=== PATIENT | male | born 1980 | race Caucasian/White ===

== ENCOUNTER 2016-08-22 11:51 | Inpatient (IN) | payer MEDICARE, MEDICAID ==
[~2016-08-22] VITALS: Ht 167.6 cm; Wt 64.2 kg
[~2016-08-22 11:51] MED LIST: LITH600C PO; NICO21T TD; PHENY100 PO; QUET400T PO
[2016-08-22 12:15] LABS: BASOPHILS % (AUTO) 0.2 % (0.0-2.0); EOSINOPHILS % (AUTO) 0.1 % (1.0-6.0); HEMATOCRIT 44.5 % (41-53); HEMOGLOBIN 14.8 g/dL (13.5-17.5); LYMPHOCYTES # (AUTO) 1.8 K/uL (1.0-4.8); LYMPHOCYTES % (AUTO) 19.8 % (22.0-44.0); MEAN CORPUSCULAR HGB CONC 33.1 G/dL (31.0-37.0); MEAN CORPUSCULAR VOLUME 91 fL (80-100); MONOCYTES # (AUTO) 0.5 K/uL (0.1-1.0); MONOCYTES % (AUTO) 5.5 % (2.0-9.0); NEUTROPHILS # (AUTO) 6.8 K/uL (1.8-7.7); NEUTROPHILS % (AUTO) 74.4 % (40.0-70.0); PLATELET COUNT (AUTO) 322 K/uL (150-450); RED BLOOD CELL COUNT(AUTO) 4.92 MIL/uL (4.50-5.90); RED CELL DISTRIBUTION WIDTH 14.4 % (11.5-14.5); WHITE BLOOD COUNT (AUTO) 9.1 K/uL (4.5-11.0)
[2016-08-22 12:29] LABS: ANION GAP 10 mmol/L (8-16); CARBON DIOXIDE 28 mmol/L (22-29); CHLORIDE 102 mmol/L (98-107); GLOMERULAR FILTR. RATE CALC > 60 mL/min (>60); SODIUM SERUM 140 mmol/L (136-145); UREA NITROGEN, BLOOD 9 mg/dL (7-18)
[2016-08-22 12:35] LABS: ALANINE AMINOTRANSFERASE 31 U/L (12-78); ALBUMIN 3.8 g/dL (3.4-5.0); ASPARTATE AMINOTRANSFERASE 12 U/L (15-37); BILIRUBIN,TOTAL 0.4 mg/dL (0.1-1.0); TOTAL PROTEIN, SERUM 7.4 g/dL (6.4-8.2)
[2016-08-22] MEDS ORDERED: CARB200T6 PO (13:01)
[2016-08-22] MEDS ORDERED: TRAZ-147 PO (13:01)
[2016-08-22] MEDS ORDERED: QUET300T2 PO (13:01)
[2016-08-22] MEDS ORDERED: HALOPERIDOL LACTATE 5 MG/ML VIAL IM ONE (14:15)
[2016-08-22] MEDS ORDERED: LORazepam 2 MG/ML VIAL IM ONE (14:15)
[2016-08-22 14:34] LABS: LITHIUM < 0.20 mmol/L (0.60-1.20)
[2016-08-22 22:15] VITALS: BP 106/74
[2016-08-22] MEDS ORDERED: INFLUENZA VIRUS VACCINE QVS 2016-17 (3YR+)/PF 60 MCG/0.5 ML SYRINGE IM ONE (22:15)
[2016-08-23 06:44] VITALS: BP 112/73
[2016-08-23 08:33] VITALS: BP 130/81
[2016-08-23] MEDS: NICOTINE 7 MG/24 HOUR PATCH TD SCH (09:00)
[2016-08-23] MEDS: CarBAMazepine 200 MG TABLET PO SCH ×3 (09:48→17:38)
[2016-08-23] MEDS: LORazepam 2 MG TABLET PO PRN (14:36)
[2016-08-23 16:00] VITALS: BP 126/82
[2016-08-23] MEDS: QUEtiapine FUMARATE 300 MG TABLET PO SCH (17:39)
[2016-08-23] MEDS: TraZODone HCL 100 MG TABLET PO SCH (21:19)
[2016-08-24 01:34] VITALS: BP 131/72
[2016-08-24] MEDS: HALOPERIDOL 5 MG TABLET PO PRN (01:49)
[2016-08-24] MEDS: ZOLPIDEM TARTRATE 10 MG TABLET PO PRN (01:49)
[2016-08-24] MEDS: LORazepam 2 MG TABLET PO PRN ×2 (01:49→16:15)
[2016-08-24 08:09] VITALS: BP_SYST 127
[2016-08-24] MEDS: NICOTINE 7 MG/24 HOUR PATCH TD SCH (09:00)
[2016-08-24] MEDS: QUEtiapine FUMARATE 300 MG TABLET PO SCH ×2 (09:43→16:15)
[2016-08-24] MEDS: CarBAMazepine 200 MG TABLET PO SCH ×3 (09:43→16:15)
[2016-08-24 16:09] VITALS: BP 123/81
[2016-08-24] MEDS: TraZODone HCL 100 MG TABLET PO SCH (20:32)
[2016-08-25] MEDS: HALOPERIDOL 5 MG TABLET PO PRN (03:03)
[2016-08-25] MEDS: LORazepam 2 MG TABLET PO PRN (03:03)
[2016-08-25 03:12] VITALS: BP 132/78
[2016-08-25 08:09] VITALS: BP 139/76
[2016-08-25] MEDS: NICOTINE 7 MG/24 HOUR PATCH TD SCH (09:00)
[2016-08-25] MEDS: CarBAMazepine 200 MG TABLET PO SCH ×3 (09:21→17:00)
[2016-08-25] MEDS: QUEtiapine FUMARATE 300 MG TABLET PO SCH ×2 (09:21→17:00)
[2016-08-25] MEDS: BENZTROPINE MESYLATE 1 MG TABLET PO SCH ×2 (09:21→17:00)
[2016-08-25 10:08] VITALS: BP 152/85
[2016-08-25 10:13] VITALS: BP 128/83
[2016-08-25 18:05] VITALS: BP 126/83
[2016-08-25] MEDS: TraZODone HCL 100 MG TABLET PO SCH (20:34)
[2016-08-25 23:03] VITALS: BP 125/81
[2016-08-26 02:51] VITALS: BP 115/85
[2016-08-26 06:42] VITALS: BP 122/82
[2016-08-26 08:45] VITALS: BP 132/57
[2016-08-26] MEDS: BENZTROPINE MESYLATE 1 MG TABLET PO SCH ×2 (08:46→17:19)
[2016-08-26] MEDS: AMOX TR/POT CLAV 875 MG/125 MG TABLET PO SCH ×2 (08:46→17:19)
[2016-08-26] MEDS: QUEtiapine FUMARATE 300 MG TABLET PO SCH ×2 (08:46→17:19)
[2016-08-26] MEDS: NICOTINE 7 MG/24 HOUR PATCH TD SCH (08:47)
[2016-08-26] MEDS: CarBAMazepine 200 MG TABLET PO SCH ×3 (08:47→17:19)
[2016-08-26] MEDS: IBUPROFEN 400 MG TABLET PO PRN (10:44)
[2016-08-26 13:31] VITALS: BP 118/72
[2016-08-26] MEDS: TraZODone HCL 100 MG TABLET PO SCH (20:16)
[2016-08-27] MEDS: QUEtiapine FUMARATE 300 MG TABLET PO SCH ×2 (08:02→17:08)
[2016-08-27] MEDS: BENZTROPINE MESYLATE 1 MG TABLET PO SCH ×2 (08:02→17:08)
[2016-08-27] MEDS: CarBAMazepine 200 MG TABLET PO SCH ×3 (08:02→17:08)
[2016-08-27] MEDS: AMOX TR/POT CLAV 875 MG/125 MG TABLET PO SCH ×2 (08:02→17:08)
[2016-08-27 08:17] VITALS: BP 130/83
[2016-08-27] MEDS: NICOTINE 7 MG/24 HOUR PATCH TD SCH (09:00)
[2016-08-27] MEDS: IBUPROFEN 400 MG TABLET PO PRN (09:33)
[2016-08-27] MEDS: HALOPERIDOL 5 MG TABLET PO PRN (17:08)
[2016-08-27] MEDS: LORazepam 2 MG TABLET PO PRN (17:09)
[2016-08-27] MEDS: TraZODone HCL 100 MG TABLET PO SCH (21:51)
[2016-08-27 22:50] VITALS: BP 116/86
[2016-08-28] MEDS: ZOLPIDEM TARTRATE 10 MG TABLET PO PRN (01:24)
[2016-08-28] MEDS: AMOX TR/POT CLAV 875 MG/125 MG TABLET PO SCH ×2 (08:04→16:16)
[2016-08-28] MEDS: BENZTROPINE MESYLATE 1 MG TABLET PO SCH ×2 (08:04→16:16)
[2016-08-28] MEDS: QUEtiapine FUMARATE 300 MG TABLET PO SCH ×2 (08:04→16:16)
[2016-08-28] MEDS: CarBAMazepine 200 MG TABLET PO SCH ×3 (08:04→16:16)
[2016-08-28] MEDS: LORazepam 2 MG TABLET PO PRN (08:04)
[2016-08-28 08:20] VITALS: BP 126/79
[2016-08-28] MEDS: NICOTINE 7 MG/24 HOUR PATCH TD SCH (09:00)
[2016-08-28 16:44] VITALS: BP 125/80
[2016-08-28] MEDS: TraZODone HCL 100 MG TABLET PO SCH (20:10)
[2016-08-29] MEDS: CarBAMazepine 200 MG TABLET PO SCH ×3 (08:05→16:26)
[2016-08-29] MEDS: LORazepam 2 MG TABLET PO PRN (08:05)
[2016-08-29] MEDS: BENZTROPINE MESYLATE 1 MG TABLET PO SCH ×2 (08:05→16:26)
[2016-08-29] MEDS: NICOTINE 7 MG/24 HOUR PATCH TD SCH (08:05)
[2016-08-29] MEDS: AMOX TR/POT CLAV 875 MG/125 MG TABLET PO SCH ×2 (08:05→16:26)
[2016-08-29] MEDS: QUEtiapine FUMARATE 300 MG TABLET PO SCH ×2 (08:05→16:26)
[2016-08-29] MEDS: HALOPERIDOL 5 MG TABLET PO PRN (08:06)
[2016-08-29 09:51] VITALS: BP 122/86
[2016-08-29 16:19] VITALS: BP 133/79
[2016-08-29] MEDS: TraZODone HCL 100 MG TABLET PO SCH (20:58)
[2016-08-30] MEDS: NICOTINE 7 MG/24 HOUR PATCH TD SCH (08:08)
[2016-08-30] MEDS: AMOX TR/POT CLAV 875 MG/125 MG TABLET PO SCH ×2 (08:08→17:09)
[2016-08-30] MEDS: IBUPROFEN 400 MG TABLET PO PRN (08:09)
[2016-08-30] MEDS: HALOPERIDOL 5 MG TABLET PO PRN (08:12)
[2016-08-30] MEDS: BENZTROPINE MESYLATE 1 MG TABLET PO SCH ×2 (08:12→17:09)
[2016-08-30] MEDS: CarBAMazepine 200 MG TABLET PO SCH ×3 (08:12→17:09)
[2016-08-30] MEDS: QUEtiapine FUMARATE 300 MG TABLET PO SCH ×2 (08:12→17:09)
[2016-08-30] MEDS: LORazepam 2 MG TABLET PO PRN (08:12)
[2016-08-30 08:15] VITALS: BP 125/61
[2016-08-30 16:43] VITALS: BP 123/82
[2016-08-30] MEDS: TraZODone HCL 100 MG TABLET PO SCH (21:13)
[2016-08-30] MEDS: ZOLPIDEM TARTRATE 10 MG TABLET PO PRN (22:33)
[2016-08-31] MEDS: CarBAMazepine 200 MG TABLET PO SCH ×3 (08:13→16:14)
[2016-08-31] MEDS: BENZTROPINE MESYLATE 1 MG TABLET PO SCH ×2 (08:13→16:16)
[2016-08-31] MEDS: QUEtiapine FUMARATE 300 MG TABLET PO SCH ×2 (08:13→16:14)
[2016-08-31] MEDS: NICOTINE 7 MG/24 HOUR PATCH TD SCH (09:00)
[2016-08-31 09:01] VITALS: BP 135/80
[2016-08-31 17:17] VITALS: BP 117/72
[2016-08-31] MEDS: TraZODone HCL 100 MG TABLET PO SCH (20:55)
[2016-09-01 08:00] VITALS: BP 130/62
[2016-09-01 08:30] VITALS: BP 130/62
[2016-09-01] MEDS: QUEtiapine FUMARATE 300 MG TABLET PO SCH ×2 (10:21→17:51)
[2016-09-01] MEDS: CarBAMazepine 200 MG TABLET PO SCH ×3 (10:21→17:51)
[2016-09-01] MEDS: NICOTINE 7 MG/24 HOUR PATCH TD SCH (10:21)
[2016-09-01] MEDS: BENZTROPINE MESYLATE 1 MG TABLET PO SCH ×2 (10:21→17:51)
[2016-09-01] MEDS: HALOPERIDOL 5 MG TABLET PO PRN (12:23)
[2016-09-01] MEDS: LORazepam 2 MG TABLET PO PRN (12:23)
[2016-09-01 16:00] VITALS: BP 114/80
[2016-09-01] MEDS: TraZODone HCL 100 MG TABLET PO SCH (21:50)
[2016-09-02 08:30] VITALS: BP 120/86
[2016-09-02] MEDS: CarBAMazepine 200 MG TABLET PO SCH ×3 (08:43→17:58)
[2016-09-02] MEDS: QUEtiapine FUMARATE 300 MG TABLET PO SCH ×2 (08:43→17:58)
[2016-09-02] MEDS: BENZTROPINE MESYLATE 1 MG TABLET PO SCH ×2 (08:44→17:58)
[2016-09-02] MEDS: NICOTINE 7 MG/24 HOUR PATCH TD SCH (08:46)
[2016-09-02] MEDS: HALOPERIDOL 5 MG TABLET PO PRN ×2 (09:46→19:55)
[2016-09-02] MEDS: LORazepam 2 MG TABLET PO PRN ×2 (09:46→19:55)
[2016-09-02 16:00] VITALS: BP 116/80
[2016-09-02] MEDS: TraZODone HCL 100 MG TABLET PO SCH (20:48)
[2016-09-03] MEDS: NICOTINE 7 MG/24 HOUR PATCH TD SCH (09:00)
[2016-09-03] MEDS: BENZTROPINE MESYLATE 1 MG TABLET PO SCH (09:09)
[2016-09-03] MEDS: QUEtiapine FUMARATE 300 MG TABLET PO SCH (09:09)
[2016-09-03] MEDS: CarBAMazepine 200 MG TABLET PO SCH (09:09)
[2016-09-03] MEDS ORDERED: BENZ1TAB10 PO (09:32)
[2016-09-03 09:42] VITALS: BP 125/78
[2016-09-03] MEDS ORDERED: NICO7T TD (10:08)
== END 2016-09-03 10:00 | disposition home or self-care (01) | DRG 885 ==
LOC: EMS 11:53 → B3A 20:39 → 3EC 08-25 16:30
DX: F25.0 Schizoaffective disorder, bipolar type (principal); F19.20 Other psychoactive substance dependence, uncomplicated; G40.909 Epilepsy, unspecified, not intractable, without status epilepticus; H40.9 Unspecified glaucoma; F99 Mental disorder, not otherwise specified; Z79.899 Other long term (current) drug therapy; Z78.1 Physical restraint status; Z59.0 Homelessness; Z91.5 Personal history of self-harm; Z72.89 Other problems related to lifestyle; Z88.5 Allergy status to narcotic agent; Z98.890 Other specified postprocedural states; Z28.21 Immunization not carried out because of patient refusal
CPT/HCPCS: 70450; 87081; 96372; 99285; A0429; G0480; J1630; J2060

== ENCOUNTER 2016-08-25 10:46 | Emergency (ER) | payer MEDICARE, OTHER ==
[~2016-08-25] VITALS: Ht 160 cm; Wt 72.7 kg
[~2016-08-25 10:46] MED LIST changes: +CARB200T6 PO; -LITH600C PO; -NICO21T TD; -PHENY100 PO; +QUET300T2 PO; -QUET400T PO; +TRAZ-147 PO
[2016-08-25 15:15] VITALS: BP 134/80
[2016-08-25] MEDS: PERTUSS(ACELL),DIPH,TET VAC/PF 0.5 ML VIAL IM ONE (15:20)
[2016-08-25] MEDS: AMOX TR/POT CLAV 875 MG/125 MG TABLET PO ONE (15:20)
[2016-08-25] MEDS: IBUPROFEN 600 MG TABLET PO ONE (15:21)
== END 2016-08-25 17:45 | disposition home or self-care (01) ==
LOC: EMS 10:48 → 3EC 17:35 → UNDOADMIN 17:35 → EMS 17:45
DX: S01.511A Laceration without foreign body of lip, initial encounter (principal); F17.210 Nicotine dependence, cigarettes, uncomplicated; Z88.8 Allergy status to other drugs, medicaments and biological substances; Y08.89XA Assault by other specified means, initial encounter; Y93.89 Activity, other specified; Y92.89 Other specified places as the place of occurrence of the external cause; Y99.8 Other external cause status
CPT/HCPCS: 12011; 70450; 70486; 90471; 90715; 99284; 99285

== ENCOUNTER 2017-07-05 10:31 | Inpatient (IN) | payer MEDICARE, MEDICAID ==
[~2017-07-05] VITALS: Ht 170.2 cm; Wt 61.9 kg
[~2017-07-05 10:31] MED LIST changes: +BENZ1TAB10 PO; +NICO7T TD
[2017-07-05 11:12] VITALS: BP 118/81
[2017-07-05] MEDS ORDERED: HALOPERIDOL 5 MG TABLET PO PRN (11:30)
[2017-07-05] MEDS ORDERED: LORazepam 2 MG TABLET PO PRN (11:30)
[2017-07-05] MEDS ORDERED: ZOLPIDEM TARTRATE 10 MG TABLET PO PRN (11:30)
[2017-07-05 13:43] VITALS: BP 116/72
[2017-07-05] MEDS ORDERED: INFLUENZA VIRUS VACCINE QVS 2017-18 (3YR+)/PF 60 MCG/0.5 ML SYRINGE IM ONE (14:15)
[2017-07-05 15:39] LABS: AMPHET/METH SCREEN,URINE POSITIVE (NEGATIVE); BARBITURATE SCREEN, URINE NEGATIVE (NEGATIVE); BENZODIAZEPINES SCREEN,URINE NEGATIVE (NEGATIVE); CANNABINOID SCREEN,URINE POSITIVE (NEGATIVE); COCAINE SCREEN,URINE NEGATIVE (NEGATIVE); METHADONE SCREEN, URINE NEGATIVE (NEGATIVE); OPIATE SCREEN,URINE NEGATIVE (NEGATIVE)
[2017-07-05 15:41] LABS: PHENCYCLIDINE SCREEN,URINE NEGATIVE (NEGATIVE)
[2017-07-05 15:58] LABS: APPEARANCE,URINE CLEAR (CLEAR); BILIRUBIN,URINE NEGATIVE (NEGATIVE); GLUCOSE, URINE (UA) 100 mg/dL (NEGATIVE); KETONES,URINE NEGATIVE (NEGATIVE); LEUKOCYTE ESTERASE ,URINE NEGATIVE (NEGATIVE); NITRATE,URINE NEGATIVE (NEGATIVE); OCCULT BLOOD,URINE NEGATIVE (NEGATIVE); PROTEIN,URINE NEGATIVE (NEGATIVE)
[2017-07-05] MEDS ORDERED: IBUPROFEN 400 MG TABLET PO PRN (16:15)
[2017-07-05] MEDS ORDERED: ACETAMINOPHEN 325 MG TABLET PO PRN (16:15)
[2017-07-05 16:18] LABS: BACTERIA,URINE None Seen /HPF (None Seen); RBC,URINE None Seen /HPF (0-2); SQUAMOUS EPITHELIAL CELL,UR Few /LPF (None Seen); WBC,URINE 0-2 /HPF (0-5)
[2017-07-05] MEDS: QUEtiapine FUMARATE 300 MG TABLET PO SCH (16:37)
[2017-07-05] MEDS: CarBAMazepine 200 MG TABLET PO SCH (16:37)
[2017-07-05] MEDS: BENZTROPINE MESYLATE 1 MG TABLET PO SCH (16:37)
[2017-07-05 17:00] VITALS: BP 105/66
[2017-07-05] MEDS: TraZODone HCL 100 MG TABLET PO SCH (20:45)
[2017-07-06 07:14] LABS: BASOPHILS # (AUTO) 0.02 K/uL (0.00-0.20); BASOPHILS % (AUTO) 0.2 % (0.0-2.0); EOSINOPHILS # (AUTO) 0.01 K/uL (0.00-0.70); EOSINOPHILS % (AUTO) 0.14 % (1.0-6.0); HEMATOCRIT 45.2 % (41-53); HEMOGLOBIN 15.6 g/dL (13.5-17.5); LYMPHOCYTES % (AUTO) 23.2 % (22.0-44.0); MEAN CORPUSCULAR HGB CONC 34.5 G/dL (31.0-37.0); MEAN CORPUSCULAR VOLUME 90 fL (80-100); MONOCYTES # (AUTO) 0.6 K/uL (0.1-1.0); MONOCYTES % (AUTO) 6.9 % (2.0-9.0); NEUTROPHILS # (AUTO) 6.1 K/uL (1.8-7.7); NEUTROPHILS % (AUTO) 69.6 % (40.0-70.0); PLATELET COUNT (AUTO) 266 K/uL (150-450); RED BLOOD CELL COUNT(AUTO) 5.04 MIL/uL (4.50-5.90)
[2017-07-06 07:37] LABS: HEMOGLOBIN A1C 5.7 % (4.5-6.2)
[2017-07-06 07:43] LABS: ALANINE AMINOTRANSFERASE 28 U/L (12-78); ALBUMIN 3.3 g/dL (3.4-5.0); ALKALINE PHOSPHATASE 117 U/L (46-116); ANION GAP 7 mmol/L (8-16); ASPARTATE AMINOTRANSFERASE 13 U/L (15-37); BILIRUBIN,TOTAL 0.4 mg/dL (0.1-1.0); CALCIUM, TOTAL 8.4 mg/dL (8.8-10.5); CARBAMAZEPINE (TEGRETOL) 4.4 mcg/mL (4.0-12.0); CARBON DIOXIDE 28 mmol/L (22-29); CHLORIDE 101 mmol/L (98-107); CHOL/HDL RATIO 3.8 (4.2-7.3); CHOLESTEROL 148 mg/dL (131-200); CREATININE 1.03 mg/dL (0.60-1.30); FREE T4 (FREE THYROXINE) 0.75 ng/dL (0.76-1.46); GLOMERULAR FILTR. RATE CALC > 60 mL/min (>60); GLUCOSE,RANDOM 97 mg/dL (70-110); HDL CHOLESTEROL 39 mg/dL (40-60); LDL CHOL (CALC.) 93 mg/dL (0-130); POTASSIUM 3.6 mmol/L (3.5-5.1); SODIUM SERUM 136 mmol/L (136-145); THYROID STIMULATING HORMONE 0.32 uIU/mL (0.36-3.74); TOTAL PROTEIN, SERUM 6.4 g/dL (6.4-8.2); TRIGLYCERIDES 81 mg/dL (15-150); UREA NITROGEN, BLOOD 13 mg/dL (7-18)
[2017-07-06 08:15] VITALS: BP 120/83
[2017-07-06] MEDS: QUEtiapine FUMARATE 300 MG TABLET PO SCH ×2 (09:19→16:23)
[2017-07-06] MEDS: BENZTROPINE MESYLATE 1 MG TABLET PO SCH ×2 (09:19→16:23)
[2017-07-06] MEDS: CarBAMazepine 200 MG TABLET PO SCH ×2 (09:19→16:23)
[2017-07-06 16:41] VITALS: BP 116/66
[2017-07-06] MEDS: TraZODone HCL 100 MG TABLET PO SCH (20:26)
[2017-07-07 08:15] VITALS: BP 118/78
[2017-07-07] MEDS: BENZTROPINE MESYLATE 1 MG TABLET PO SCH ×2 (08:32→16:01)
[2017-07-07] MEDS: QUEtiapine FUMARATE 300 MG TABLET PO SCH ×2 (08:32→16:01)
[2017-07-07] MEDS: CarBAMazepine 200 MG TABLET PO SCH ×2 (08:33→16:01)
[2017-07-07 17:18] VITALS: BP 120/81
[2017-07-07] MEDS: TraZODone HCL 100 MG TABLET PO SCH (20:23)
[2017-07-08 08:06] VITALS: BP 124/70
[2017-07-08] MEDS: CarBAMazepine 200 MG TABLET PO SCH ×2 (08:20→16:34)
[2017-07-08] MEDS: BENZTROPINE MESYLATE 1 MG TABLET PO SCH ×2 (08:20→16:34)
[2017-07-08 17:00] VITALS: BP 128/74
[2017-07-08] MEDS: TraZODone HCL 100 MG TABLET PO SCH (20:11)
[2017-07-08] MEDS ORDERED: QUEtiapine FUMARATE 300 MG TABLET PO SCH (21:00)
[2017-07-09] MEDS ORDERED: QUET300T2 PO (00:47)
[2017-07-09] MEDS ORDERED: CARB200T6 PO (00:47)
[2017-07-09 06:29] VITALS: BP 100/72
[2017-07-09 08:00] VITALS: BP 119/82
[2017-07-09] MEDS: CarBAMazepine 200 MG TABLET PO SCH (08:02)
[2017-07-09] MEDS: BENZTROPINE MESYLATE 1 MG TABLET PO SCH (08:02)
== END 2017-07-09 08:30 | disposition home or self-care (01) | DRG 885 ==
LOC: 3EX 13:07
PROC: 3E0234Z Introduction of Serum, Toxoid and Vaccine into Muscle, Percutaneous Approach (ICD-10-PCS; principal; 2017-07-05)
DX: F25.0 Schizoaffective disorder, bipolar type (principal); G40.909 Epilepsy, unspecified, not intractable, without status epilepticus; E78.5 Hyperlipidemia, unspecified; F12.10 Cannabis abuse, uncomplicated; F15.10 Other stimulant abuse, uncomplicated; H40.9 Unspecified glaucoma; R73.9 Hyperglycemia, unspecified; F17.200 Nicotine dependence, unspecified, uncomplicated; Z87.820 Personal history of traumatic brain injury; Z59.9 Problem related to housing and economic circumstances, unspecified; Z88.5 Allergy status to narcotic agent; Z79.899 Other long term (current) drug therapy; Z23 Encounter for immunization
CPT/HCPCS: 80307; 83036; 84439; 84443; 90471

== ENCOUNTER 2020-09-20 22:09 | Emergency (ER) | payer MEDICARE, OTHER, SELFPAY ==
[~2020-09-20] VITALS: Ht 170.2 cm; Wt 59.1 kg
[~2020-09-20 22:09] MED LIST changes: -NICO7T TD; -TRAZ-147 PO; +TRAZ-257 PO
[2020-09-20 22:17] VITALS: BP 109/68
== END 2020-09-20 23:52 | disposition home or self-care (01) ==
LOC: EMS 22:09
DX: Z53.21 Procedure and treatment not carried out due to patient leaving prior to being seen by health care provider (principal)

== ENCOUNTER 2021-06-14 11:13 | Emergency (ER) | payer MEDICARE, OTHER ==
[~2021-06-14] VITALS: Ht 170.2 cm; Wt 81.8 kg
[2021-06-14] MEDS ORDERED: ACETAMINOPHEN 500 MG TABLET PO ONE (11:30)
[2021-06-14] MEDS ORDERED: GuaiFENesin/D-METHORPHAN [SUGAR-FREE] 200-20MG/10 ML SYRUP UDCUP PO ONE (11:30)
[2021-06-14 12:15] LABS: COVID AG,FIA SOURCE NASAL SWAB
[2021-06-14 13:10] LABS: INFLUENZA TYPE A NEGATIVE FOR TYPE A (NEGATIVE); INFLUENZA TYPE B NEGATIVE FOR TYPE B (NEGATIVE)
[2021-06-14 13:15] VITALS: BP 126/71
== END 2021-06-14 13:28 | disposition home or self-care (01) ==
LOC: EMS 11:22
DX: J06.9 Acute upper respiratory infection, unspecified (principal); F17.210 Nicotine dependence, cigarettes, uncomplicated; F12.90 Cannabis use, unspecified, uncomplicated; F20.9 Schizophrenia, unspecified; Z20.822 Contact with and (suspected) exposure to COVID-19
CPT/HCPCS: 87804; 99283

== ENCOUNTER 2021-06-24 00:09 | Emergency (ER) | payer MEDICARE, OTHER ==
[~2021-06-24] VITALS: Ht 170.2 cm; Wt 63.6 kg
[2021-06-24 00:20] VITALS: BP 148/92
[2021-06-24 00:53] LABS: BASOPHILS % (AUTO) 0.6 % (0.0-2.0); EOSINOPHILS % (AUTO) 0.2 % (1.0-6.0); HEMATOCRIT 43.7 % (41-53); HEMOGLOBIN 15.3 g/dL (13.5-17.5); LYMPHOCYTES # (AUTO) 1.6 K/uL (1.0-4.8); LYMPHOCYTES % (AUTO) 17.7 % (22.0-44.0); MEAN CORPUSCULAR HGB CONC 35.1 G/dL (31.0-37.0); MEAN CORPUSCULAR VOLUME 88 fL (80-100); MONOCYTES # (AUTO) 0.6 K/uL (0.1-1.0); MONOCYTES % (AUTO) 6.9 % (2.0-9.0); NEUTROPHILS # (AUTO) 6.7 K/uL (1.8-7.7); NEUTROPHILS % (AUTO) 74.6 % (40.0-70.0); PLATELET COUNT (AUTO) 376 K/uL (150-450); RED BLOOD CELL COUNT(AUTO) 4.95 MIL/uL (4.50-5.90); RED CELL DISTRIBUTION WIDTH 14.1 % (11.5-14.5)
[2021-06-24 01:00] LABS: ANION GAP 6 mmol/L (8-16); CALCIUM, TOTAL 9.1 mg/dL (8.8-10.5); CARBON DIOXIDE 32 mmol/L (22-29); CHLORIDE 104 mmol/L (98-107); CREATININE 0.98 mg/dL (0.60-1.30); GLOMERULAR FILTR. RATE CALC > 60 mL/min (>60); GLUCOSE,RANDOM 127 mg/dL (70-110); POTASSIUM 4.4 mmol/L (3.5-5.1); SODIUM SERUM 142 mmol/L (136-145); UREA NITROGEN, BLOOD 19 mg/dL (7-18)
[2021-06-24 01:06] LABS: ALANINE AMINOTRANSFERASE 36 U/L (12-78); ALBUMIN 3.7 g/dL (3.4-5.0); ALKALINE PHOSPHATASE 113 U/L (46-116); ASPARTATE AMINOTRANSFERASE 18 U/L (15-37); BILIRUBIN,TOTAL 0.2 mg/dL (0.1-1.0); TOTAL PROTEIN, SERUM 7.2 g/dL (6.4-8.2)
[2021-06-24 02:15] LABS: AMPHET/METH SCREEN,URINE POSITIVE (NEGATIVE); BARBITURATE SCREEN, URINE NEGATIVE (NEGATIVE); BENZODIAZEPINES SCREEN,URINE NEGATIVE (NEGATIVE); CANNABINOID SCREEN,URINE POSITIVE (NEGATIVE); COCAINE SCREEN,URINE NEGATIVE (NEGATIVE); METHADONE SCREEN, URINE NEGATIVE (NEGATIVE); OPIATE SCREEN,URINE NEGATIVE (NEGATIVE)
[2021-06-24 06:01] LABS: PHENCYCLIDINE SCREEN,URINE NEGATIVE (NEGATIVE)
== END 2021-06-24 05:04 | disposition left against medical advice (07) ==
LOC: EMS 00:11
DX: R25.1 Tremor, unspecified (principal); F25.9 Schizoaffective disorder, unspecified; F17.210 Nicotine dependence, cigarettes, uncomplicated; F12.90 Cannabis use, unspecified, uncomplicated; Z88.6 Allergy status to analgesic agent
CPT/HCPCS: 36415; 80053; 80307; 85025; 99283; G0480; 99284

== ENCOUNTER 2021-11-22 19:28 | Emergency (ER) | payer MEDICARE, OTHER ==
[~2021-11-22] VITALS: Ht 170.2 cm; Wt 61.4 kg
[~2021-11-22 19:28] MED LIST changes: -BENZ1TAB10 PO; +BENZ1TAB96 PO
[2021-11-22 19:32] VITALS: BP 105/91
== END 2021-11-22 21:13 | disposition left against medical advice (07) ==
LOC: EMS 19:31
DX: M79.674 Pain in right toe(s) (principal); Z53.21 Procedure and treatment not carried out due to patient leaving prior to being seen by health care provider

== ENCOUNTER 2021-12-08 15:08 | Emergency (ER) | payer MEDICARE, OTHER ==
[~2021-12-08] VITALS: Ht 170.2 cm; Wt 59.1 kg
[2021-12-08 15:41] VITALS: BP 107/69
[2021-12-08] MEDS ORDERED: CARBAMIDE PEROXIDE 6.5% 15 ML OTIC SOLUTION AD ONE (16:30)
== END 2021-12-08 16:51 | disposition home or self-care (01) ==
LOC: EMS 15:08
DX: H61.21 Impacted cerumen, right ear (principal); F20.9 Schizophrenia, unspecified; F17.210 Nicotine dependence, cigarettes, uncomplicated; F12.90 Cannabis use, unspecified, uncomplicated; Z98.890 Other specified postprocedural states; Z88.8 Allergy status to other drugs, medicaments and biological substances
CPT/HCPCS: 69210; 99282; 99284; Z7502; Z7610

== ENCOUNTER 2023-10-02 21:23 | Emergency (ER) | payer MEDICARE, OTHER ==
[~2023-10-02] VITALS: Ht 170.2 cm; Wt 77.0 kg
[~2023-10-02 21:23] MED LIST changes: +BENZ1TAB84 PO; -BENZ1TAB96 PO; +CARB-92 PO; -CARB200T6 PO
[2023-10-02 22:20] VITALS: BP 123/68; PULSE 64; RESP 20; TEMP 98.4
[2023-10-02] MEDS ORDERED: IBUP-1492 PO (23:41)
[2023-10-02] MEDS: IBUPROFEN 600 MG TABLET PO ONE (23:50)
== END 2023-10-03 00:07 | disposition home or self-care (01) ==
LOC: EMS 21:23
DX: S43.122A Dislocation of left acromioclavicular joint, 100%-200% displacement, initial encounter (principal); F31.9 Bipolar disorder, unspecified; F20.9 Schizophrenia, unspecified; F17.210 Nicotine dependence, cigarettes, uncomplicated; F12.90 Cannabis use, unspecified, uncomplicated; Z88.5 Allergy status to narcotic agent; X58.XXXA Exposure to other specified factors, initial encounter; Y93.89 Activity, other specified; Y92.89 Other specified places as the place of occurrence of the external cause; Y99.8 Other external cause status
CPT/HCPCS: 99283